=== PATIENT | female | born 1945 | race Caucasian/White ===

== ENCOUNTER 2018-05-16 07:39 | Outpatient (CLI) | payer OTHER | END 2018-05-16 07:44 | disposition home or self-care (01) | LOC: SONOGRAMA 07:39 | DX: K29.30 Chronic superficial gastritis without bleeding (principal) ==

== ENCOUNTER 2019-03-07 14:06 | Outpatient (CLI) | payer OTHER | END 2019-03-07 14:08 | disposition home or self-care (01) | LOC: TOM 14:06 | DX: R05 Cough (principal); J01.00 Acute maxillary sinusitis, unspecified ==

== ENCOUNTER 2022-04-06 10:30 | Outpatient (CLI) | payer OTHER | END 2022-04-06 10:34 | disposition home or self-care (01) | LOC: RAD 10:30 | DX: M16.11 Unilateral primary osteoarthritis, right hip (principal) ==

== ENCOUNTER 2022-04-06 11:17 | Outpatient (CLI) | payer OTHER | END 2022-04-06 11:18 | disposition home or self-care (01) | LOC: NUCLEAR 11:17 | DX: M81.0 Age-related osteoporosis without current pathological fracture (principal) ==

== ENCOUNTER 2025-05-28 10:24 | Outpatient (CLI) | payer OTHER | END 2025-05-28 10:26 | disposition home or self-care (01) | LOC: RAD 10:24 | PROVIDERS: ATTEND Family Medicine | DX: S30.0XXA Contusion of lower back and pelvis, initial encounter (principal) ==